=== PATIENT | male | born 1990 | race Caucasian/White ===

== ENCOUNTER → 2019-06-10 | Outpatient (CLI) | payer BC | END | disposition home or self-care (01) | LOC: RAD 23:26 | DX: M47.812 Spondylosis without myelopathy or radiculopathy, cervical region (principal); M48.02 Spinal stenosis, cervical region ==

== ENCOUNTER 2023-04-18 21:53 | Emergency (ER) | payer BC ==
[~2023-04-18] VITALS: Ht 170.1 cm; Wt 68.0 kg
[2023-04-18] MEDS ORDERED: CIPROFLOXACIN H10 ML OPH (22:37)
== END 2023-04-18 22:47 | disposition home or self-care (01) ==
LOC: ED 21:53
DX: T15.91XA Foreign body on external eye, part unspecified, right eye, initial encounter (principal); S05.01XA Injury of conjunctiva and corneal abrasion without foreign body, right eye, initial encounter; X58.XXXA Exposure to other specified factors, initial encounter; Y93.89 Activity, other specified; Y92.89 Other specified places as the place of occurrence of the external cause; Y99.8 Other external cause status